=== PATIENT | female | born 2000 | race Hispanic/Latino ===

== ENCOUNTER 2022-05-20 17:08 | Observation (INO) | payer MEDICAID ==
[~2022-05-20] VITALS: Ht 162.6 cm; Wt 74.8 kg
[2022-05-20 17:10] VITALS: BP 127/86
== END 2022-05-20 18:15 | disposition home or self-care (01) ==
LOC: EDH 17:08 → LDH 17:09
PROVIDERS: ADMIT Obstetrics & Gynecology; ATTEND Obstetrics & Gynecology
DX: O34.63 Maternal care for abnormality of vagina, third trimester (principal); N89.8 Other specified noninflammatory disorders of vagina; Z3A.29 29 weeks gestation of pregnancy
CPT/HCPCS: G0379; G0378